=== PATIENT | female | born 1940 | race Caucasian/White ===

== ENCOUNTER 2018-02-16 21:19 | Inpatient (IN) | payer OTHER, MEDICARE ==
[2018-02-16] MEDS: METHYLPREDNISOLONE 125 MG INJ IV (22:32)
[2018-02-16 22:37] LABS: ADD MAN DIFF? NO
[2018-02-16 22:39] LABS: WHITE BLOOD COUNT 7.9 10^3/ul (4.8-10.8)
[2018-02-16 22:39] LABS: BASOPHIL # 0.1 10^3/ul (0.0-0.1); BASOPHILS % 0.6 % (0.0-2.0); EOSINOPHILS # 0.1 10^3/ul (0.0-0.5); EOSINOPHILS % 1.5 % (0.0-7.0); HEMOGLOBIN 13.1 g/dl (12.0-16.0); LYMPHOCYTES # 1.3 10^3/ul (0.8-2.9); LYMPHOCYTES % 16.8 % (15.0-51.0); MEAN CORPUSCULAR HEMOGLOBIN 26.1 pg (29.0-33.0); MEAN CORPUSCULAR HGB CONC 31.2 g/dl (32.0-37.0); MEAN CORPUSCULAR VOLUME 83.7 fl (82.0-101.0); MEAN PLATELET VOLUME 10.6 fl (7.4-10.4); MONOCYTE # 0.7 10^3/ul (0.3-0.9); MONOCYTES % 8.5 % (0.0-11.0); NEUTROPHIL # 5.7 10^3/ul (1.6-7.5); NEUTROPHILS % 72.3 % (39.0-77.0); PLATELET COUNT 277 10^3/UL (140-415); RED BLOOD COUNT 5.02 10^6/ul (4.20-5.40); RED CELL DISTRIBUTION WIDTH 16.8 % (11.5-14.5)
[2018-02-16 22:58] LABS: ALANINE AMINOTRANSFERASE 21 IU/L (13-69); ALBUMIN 4.1 g/dl (3.3-4.9); ALBUMIN/GLOBULIN RATIO 1.13; ALKALINE PHOSPHATASE 101 IU/L (42-121); ANION GAP 16 (8-16); ASPARTATE AMINO TRANSFERASE 23 IU/L (15-46); BLOOD UREA NITROGEN 14 mg/dl (7-20); CALCIUM 9.5 mg/dl (8.4-10.2); CARBON DIOXIDE 21 mmol/L (21-31); CHLORIDE 114 mmol/L (97-110); CREATINE KINASE 34 IU/L (23-200); CREATININE 0.61 mg/dl (0.44-1.00); GLUCOSE 111 mg/dl (70-220); SODIUM 147 mmol/L (135-144); TOTAL PROTEIN 7.7 g/dl (6.1-8.1)
[2018-02-16] MEDS: IPRATROPIUM (NEB) 0.5 MG/2.5 ML AMP INH (22:59)
[2018-02-16] MEDS: ALBUTEROL 0.083% (NEB) 2.5 MG/3 ML AMP INH (22:59)
[2018-02-16 23:11] LABS: B-TYPE NATRIURETIC PEPTIDE 3790 PG/ML (0-450); CK INDEX 2.3; CK-MB 0.79 ng/ml (0.0-2.4)
[2018-02-16 23:12] LABS: D-DIMER 1073.79 ng/ml (<460)
[2018-02-16] MEDS: ASPIRIN 325 MG TAB PO (23:42)
[2018-02-16 23:54] LABS: LACTIC ACID 1.2 mmol/L (0.5-2.0)
[2018-02-17] MEDS: IOHEXOL 100 ML (00:30)
[2018-02-17] MEDS: SOD CHLORIDE 0.9% 100 ML (00:30)
[2018-02-17] MEDS: ALBUTEROL 0.5% (NEB) 2.5 MG/0.5 ML AMP INH (00:33)
[2018-02-17] MEDS: IPRATROPIUM (NEB) 0.5 MG/2.5 ML AMP INH (00:34)
[2018-02-17] MEDS ORDERED: ONDANSETRON 4 MG INJ IV (01:30)
[2018-02-17] MEDS ORDERED: NACL 0.9% 3 ML SYG IV (01:30)
[2018-02-17] MEDS ORDERED: morphine 2 MG INJ IV (01:30)
[2018-02-17] MEDS ORDERED: ACETAMINOPHEN 325 MG TAB PO (01:30)
[2018-02-17] MEDS ORDERED: NITROGLYCERIN (SL) 0.4 MG TAB SL (01:30)
[2018-02-17] MEDS: PIPER-TAZO 3.375 GM IV (PMX) 100 ML IVPB ×5 (01:42→22:03)
[2018-02-17] MEDS: FUROSEMIDE 20 MG INJ IV (01:43)
[2018-02-17 01:58] LABS: LACTIC ACID 1.9 mmol/L (0.5-2.0)
[2018-02-17 02:13] LABS: CREATINE KINASE 36 IU/L (23-200)
[2018-02-17 02:14] LABS: TROPONIN-I 0.129 ng/ml (0.000-0.120)
[2018-02-17 02:15] LABS: CK-MB 0.72 ng/ml (0.0-2.4)
[2018-02-17] MEDS: VANCOMYCIN 1 GM (PMX) 250 ML IVPB (02:34)
[2018-02-17 03:45] LABS: ADD MAN DIFF? NO
[2018-02-17 04:03] LABS: HEMOGLOBIN A1C 5.7 % (0-5.9)
[2018-02-17 04:06] LABS: ALANINE AMINOTRANSFERASE 34 IU/L (13-69); ALBUMIN 3.7 g/dl (3.3-4.9); ALBUMIN/GLOBULIN RATIO 1.19; ALKALINE PHOSPHATASE 95 IU/L (42-121); ANION GAP 19 (8-16); ASPARTATE AMINO TRANSFERASE 32 IU/L (15-46); BILIRUBIN,INDIRECT 0.9 mg/dl (0-1.1); BILIRUBIN,TOTAL 0.9 mg/dl (0.2-1.3); BLOOD UREA NITROGEN 14 mg/dl (7-20); CALCIUM 8.9 mg/dl (8.4-10.2); CARBON DIOXIDE 18 mmol/L (21-31); CHLORIDE 114 mmol/L (97-110); CREATININE 0.64 mg/dl (0.44-1.00); GLUCOSE 221 mg/dl (70-220); MAGNESIUM 1.8 mg/dl (1.7-2.5); POTASSIUM 3.3 mmol/L (3.5-5.1); SODIUM 148 mmol/L (135-144); TOTAL PROTEIN 6.8 g/dl (6.1-8.1)
[2018-02-17 04:11] LABS: AMPHETAMINE/METHAMPHETAMINE Negative (NEGATIVE); BARBITURATES Negative (NEGATIVE); BENZODIAZEPINES Negative (NEGATIVE); CANNABINOIDS Negative (NEGATIVE); COCAINE Negative (NEGATIVE); OPIATES Negative (NEGATIVE)
[2018-02-17 04:12] LABS: WHITE BLOOD COUNT 12.3 10^3/ul (4.8-10.8)
[2018-02-17 04:12] LABS: ABNORMAL IP MESSAGE 1; BASOPHILS % 0.2 % (0.0-2.0); EOSINOPHILS % 0.1 % (0.0-7.0); HEMATOCRIT 38.5 % (37.0-47.0); HEMOGLOBIN 12.2 g/dl (12.0-16.0); LYMPHOCYTES # 0.5 10^3/ul (0.8-2.9); MEAN CORPUSCULAR HEMOGLOBIN 26.6 pg (29.0-33.0); MEAN CORPUSCULAR HGB CONC 31.7 g/dl (32.0-37.0); MEAN CORPUSCULAR VOLUME 84.1 fl (82.0-101.0); MONOCYTE # 0.1 10^3/ul (0.3-0.9); MONOCYTES % 0.8 % (0.0-11.0); NEUTROPHIL # 11.6 10^3/ul (1.6-7.5); NEUTROPHILS % 94.5 % (39.0-77.0); PLATELET COUNT 241 10^3/UL (140-415); RED BLOOD COUNT 4.58 10^6/ul (4.20-5.40)
[2018-02-17 04:22] LABS: ADD UMIC YES; UR AMORPHOUS CRYSTAL MODERATE /HPF (NONE SEEN); UR ASCORBIC ACID 40 mg/dL (NEGATIVE); UR BACTERIA FEW /HPF (NONE SEEN); UR BILIRUBIN (Dip) NEGATIVE (NEGATIVE); UR BLOOD (Dip) NEGATIVE (NEGATIVE); UR CLARITY SLIGHTLY CLOUDY (CLEAR); UR COLOR YELLOW (YELLOW); UR GLUCOSE (Dip) NEGATIVE (NEGATIVE); UR KETONES (Dip) TRACE mg/dL (NEGATIVE); UR LEUKOCYTE ESTERASE (Dip) TRACE Leu/ul (NEGATIVE); UR NITRITE (Dip) POSITIVE (NEGATIVE); UR RBC 0 /HPF (0-5); UR SPECIFIC GRAVITY (Dip) 1.034 (1.003-1.030); UR SQUAMOUS EPITHELIAL CELL FEW /HPF (FEW); UR TOTAL PROTEIN (Dip) NEGATIVE (NEGATIVE); UR UROBILINOGEN (Dip) NEGATIVE (NEGATIVE); UR WBC 8 /HPF (0-5)
[2018-02-17 04:23] LABS: POSITIVE DIFF @See below
[2018-02-17] MEDS: DEXTROSE 5%-0.45% NACL 500 ML BAG IV (04:30)
[2018-02-17 04:32] LABS: LACTIC ACID 4.4 mmol/L (0.5-2.0)
[2018-02-17] MEDS: ENOXAPARIN 80 MG/0.8 ML SYG SC (05:01)
[2018-02-17] MEDS: ALBUMIN HUMAN 25% 100 ML IV ×4 (05:02→10:21)
[2018-02-17] MEDS: POTASSIUM CHLORIDE (SR) 20 MEQ TAB PO (05:32)
[2018-02-17] MEDS ORDERED: VANCOMYCIN IV PER PHARMACY XX (06:30)
[2018-02-17] MEDS: PANTOPRAZOLE 40 MG INJ IV (07:37)
[2018-02-17 08:30] LABS: ANION GAP 20 (8-16); BLOOD UREA NITROGEN 13 mg/dl (7-20); CALCIUM 8.9 mg/dl (8.4-10.2); CARBON DIOXIDE 19 mmol/L (21-31); CHLORIDE 112 mmol/L (97-110); CREATININE 0.63 mg/dl (0.44-1.00); GLUCOSE 280 mg/dl (70-220); SODIUM 147 mmol/L (135-144)
[2018-02-17 09:45] LABS: CREATINE KINASE 29 IU/L (23-200)
[2018-02-17] MEDS: ASPIRIN 81 MG TAB PO (09:45)
[2018-02-17 09:57] LABS: CK INDEX 2.2; CK-MB 0.65 ng/ml (0.0-2.4); TROPONIN-I 0.087 ng/ml (0.000-0.120)
[2018-02-17 10:27] LABS: LACTIC ACID 5.6 mmol/L (0.5-2.0)
[2018-02-17 10:52] LABS: ANION GAP 22 (8-16); BLOOD UREA NITROGEN 13 mg/dl (7-20); CALCIUM 9.2 mg/dl (8.4-10.2); CARBON DIOXIDE 18 mmol/L (21-31); CHLORIDE 112 mmol/L (97-110); CREATININE 0.66 mg/dl (0.44-1.00); GLUCOSE 279 mg/dl (70-220); POTASSIUM 4.7 mmol/L (3.5-5.1); SODIUM 147 mmol/L (135-144)
[2018-02-17] MEDS ORDERED: DOCUSATE SODIUM 100 MG CAP PO (11:00)
[2018-02-17] MEDS: DOCUSATE SODIUM 100 MG CAP PO (11:03)
[2018-02-17] MEDS: BISACODYL (EC) 5 MG TAB PO (11:03)
[2018-02-17 15:38] LABS: LACTIC ACID 2.3 mmol/L (0.5-2.0)
[2018-02-17 15:39] LABS: PLATELET COUNT 210 10^3/UL (140-415)
[2018-02-17 15:48] LABS: INR 1.23; PROTIME 15.7 Sec (11.9-14.9); PT RATIO 1.2
[2018-02-17 15:49] LABS: PARTIAL THROMBOPLASTIN TIME 37.8 Sec (25.0-35.0); THROMBIN TIME 17.5 SEC (13.8-19.1)
[2018-02-17 16:11] LABS: ANION GAP 21 (8-16); BLOOD UREA NITROGEN 14 mg/dl (7-20); CALCIUM 9.6 mg/dl (8.4-10.2); CARBON DIOXIDE 21 mmol/L (21-31); CHLORIDE 109 mmol/L (97-110); GLUCOSE 112 mg/dl (70-220); POTASSIUM 4.5 mmol/L (3.5-5.1); SODIUM 146 mmol/L (135-144)
[2018-02-17] MEDS: LIDOCAINE 1% (MDV) 10 ML INJ (18:54)
[2018-02-17] MEDS: FUROSEMIDE 40 MG INJ IV (18:54)
[2018-02-17 19:24] LABS: FLUID LD 270 U/L; FLUID TYPE PLEURAL FLUID
[2018-02-17 19:25] LABS: FLUID GLUCOSE 143 mg/dl; FLUID TOTAL PROTEIN < 2.0 g/dl; FLUID TYPE PLEURAL FLUID
[2018-02-17 19:25] LABS: LACTIC ACID 1.8 mmol/L (0.5-2.0)
[2018-02-17 19:27] LABS: ANION GAP 19 (8-16); BLOOD UREA NITROGEN 13 mg/dl (7-20); CALCIUM 9.5 mg/dl (8.4-10.2); CARBON DIOXIDE 22 mmol/L (21-31); CHLORIDE 110 mmol/L (97-110); CREATININE 0.64 mg/dl (0.44-1.00); GLUCOSE 107 mg/dl (70-220); POTASSIUM 4.3 mmol/L (3.5-5.1); SODIUM 147 mmol/L (135-144)
[2018-02-17 19:52] LABS: FLD MN% 93.6 %; FLD PMN% 6.4 %; FLD RBC 1000 /uL; FLD WBC 251 /cmm
[2018-02-17 20:31] LABS: FLD CLARITY TURBID; FLD COLOR ORANGE
[2018-02-17 20:33] LABS: FLD TYPE THORACENTHESIS
[2018-02-18] MEDS ORDERED: VANCOMYCIN 1.25 GM in SOD CHLORIDE 0.9% 250 ML IVPB (03:00)
[2018-02-18] MEDS ORDERED: VANCOMYCIN 1 GM 250 ML IVPB (04:00)
[2018-02-18 05:34] LABS: ADD MAN DIFF? NO
[2018-02-18] MEDS: FUROSEMIDE 40 MG INJ IV ×2 (05:36→19:00)
[2018-02-18] MEDS: PIPER-TAZO 3.375 GM IV (PMX) 100 ML IVPB (05:36)
[2018-02-18] MEDS: ENOXAPARIN 40 MG/0.4 ML SYG SC (05:39)
[2018-02-18 05:44] LABS: WHITE BLOOD COUNT 11.5 10^3/ul (4.8-10.8)
[2018-02-18 05:44] LABS: BASOPHILS % 0.3 % (0.0-2.0); EOSINOPHILS # 0.1 10^3/ul (0.0-0.5); EOSINOPHILS % 0.5 % (0.0-7.0); HEMATOCRIT 36.6 % (37.0-47.0); HEMOGLOBIN 11.4 g/dl (12.0-16.0); LYMPHOCYTES # 1.5 10^3/ul (0.8-2.9); LYMPHOCYTES % 13.4 % (15.0-51.0); MEAN CORPUSCULAR HEMOGLOBIN 26.1 pg (29.0-33.0); MEAN CORPUSCULAR HGB CONC 31.1 g/dl (32.0-37.0); MEAN CORPUSCULAR VOLUME 83.9 fl (82.0-101.0); MEAN PLATELET VOLUME 11.1 fl (7.4-10.4); MONOCYTE # 0.9 10^3/ul (0.3-0.9); MONOCYTES % 7.8 % (0.0-11.0); NEUTROPHIL # 8.9 10^3/ul (1.6-7.5); NEUTROPHILS % 77.7 % (39.0-77.0); PLATELET COUNT 236 10^3/UL (140-415); RED BLOOD COUNT 4.36 10^6/ul (4.20-5.40); RED CELL DISTRIBUTION WIDTH 17.1 % (11.5-14.5)
[2018-02-18 06:43] LABS: ANION GAP 16 (8-16); BLOOD UREA NITROGEN 16 mg/dl (7-20); CALCIUM 9.5 mg/dl (8.4-10.2); CARBON DIOXIDE 23 mmol/L (21-31); CHLORIDE 112 mmol/L (97-110); CREATININE 0.78 mg/dl (0.44-1.00); GLUCOSE 106 mg/dl (70-220); MAGNESIUM 1.9 mg/dl (1.7-2.5); PHOSPHORUS 3.8 mg/dl (2.5-4.9); POTASSIUM 4.1 mmol/L (3.5-5.1); SODIUM 147 mmol/L (135-144)
[2018-02-18] MEDS ORDERED: MIDAZOLAM (DRIP) 50 mg/50 mL 50 ML IV (09:30)
[2018-02-18] MEDS: ASPIRIN 81 MG TAB PO (13:03)
[2018-02-18] MEDS: LEVOFLOXACIN 750 MG TABLET PO (14:07)
[2018-02-18] MEDS ORDERED: BISACODYL 10 MG SUPP PR (16:00)
[2018-02-19 04:49] LABS: ADD MAN DIFF? NO
[2018-02-19 04:54] LABS: WHITE BLOOD COUNT 8.8 10^3/ul (4.8-10.8)
[2018-02-19 04:54] LABS: BASOPHIL # 0.1 10^3/ul (0.0-0.1); BASOPHILS % 0.6 % (0.0-2.0); EOSINOPHILS # 0.2 10^3/ul (0.0-0.5); EOSINOPHILS % 2.7 % (0.0-7.0); HEMATOCRIT 36.3 % (37.0-47.0); HEMOGLOBIN 11.5 g/dl (12.0-16.0); LYMPHOCYTES # 1.4 10^3/ul (0.8-2.9); LYMPHOCYTES % 16.1 % (15.0-51.0); MEAN CORPUSCULAR HEMOGLOBIN 26.5 pg (29.0-33.0); MEAN CORPUSCULAR HGB CONC 31.7 g/dl (32.0-37.0); MEAN CORPUSCULAR VOLUME 83.6 fl (82.0-101.0); MEAN PLATELET VOLUME 10.9 fl (7.4-10.4); MONOCYTE # 0.7 10^3/ul (0.3-0.9); MONOCYTES % 8.4 % (0.0-11.0); NEUTROPHIL # 6.3 10^3/ul (1.6-7.5); PLATELET COUNT 221 10^3/UL (140-415); RED BLOOD COUNT 4.34 10^6/ul (4.20-5.40); RED CELL DISTRIBUTION WIDTH 16.8 % (11.5-14.5)
[2018-02-19 05:29] LABS: ANION GAP 13 (8-16); BLOOD UREA NITROGEN 17 mg/dl (7-20); CALCIUM 9.2 mg/dl (8.4-10.2); CARBON DIOXIDE 27 mmol/L (21-31); CHLORIDE 107 mmol/L (97-110); CREATININE 0.64 mg/dl (0.44-1.00); GLUCOSE 95 mg/dl (70-220); MAGNESIUM 1.9 mg/dl (1.7-2.5); PHOSPHORUS 3.4 mg/dl (2.5-4.9); POTASSIUM 3.4 mmol/L (3.5-5.1); SODIUM 144 mmol/L (135-144)
[2018-02-19] MEDS: FUROSEMIDE 40 MG INJ IV ×2 (06:07→18:29)
[2018-02-19] MEDS: ENOXAPARIN 40 MG/0.4 ML SYG SC (06:08)
[2018-02-19] MEDS: ASPIRIN 81 MG TAB PO (10:10)
[2018-02-19 10:53] LABS: LACTATE DEHYDROGENASE 550 IU/L (313-618)
[2018-02-19] MEDS: POTASSIUM CHLORIDE (SR) 20 MEQ TAB PO (13:13)
[2018-02-20] MEDS: FUROSEMIDE 40 MG INJ IV (05:40)
[2018-02-20] MEDS: ENOXAPARIN 40 MG/0.4 ML SYG SC (05:48)
[2018-02-20] MEDS: ASPIRIN 81 MG TAB PO (08:18)
[2018-02-20 08:19] LABS: ADD MAN DIFF? NO
[2018-02-20 08:25] LABS: BASOPHILS % 0.4 % (0.0-2.0); EOSINOPHILS # 0.2 10^3/ul (0.0-0.5); EOSINOPHILS % 2.6 % (0.0-7.0); HEMATOCRIT 40.3 % (37.0-47.0); LYMPHOCYTES # 1.2 10^3/ul (0.8-2.9); LYMPHOCYTES % 14.6 % (15.0-51.0); MEAN CORPUSCULAR HEMOGLOBIN 26.5 pg (29.0-33.0); MEAN CORPUSCULAR HGB CONC 32.3 g/dl (32.0-37.0); MEAN CORPUSCULAR VOLUME 82.1 fl (82.0-101.0); MEAN PLATELET VOLUME 11.2 fl (7.4-10.4); MONOCYTE # 0.6 10^3/ul (0.3-0.9); NEUTROPHILS % 74.2 % (39.0-77.0); PLATELET COUNT 251 10^3/UL (140-415); RED BLOOD COUNT 4.91 10^6/ul (4.20-5.40); RED CELL DISTRIBUTION WIDTH 16.4 % (11.5-14.5)
[2018-02-20 08:42] LABS: PHOSPHORUS 4.5 mg/dl (2.5-4.9)
[2018-02-20 08:42] LABS: MAGNESIUM 1.9 mg/dl (1.7-2.5)
[2018-02-20 08:45] LABS: ALANINE AMINOTRANSFERASE 41 IU/L (13-69); ALBUMIN 4.3 g/dl (3.3-4.9); ALBUMIN/GLOBULIN RATIO 1.48; ALKALINE PHOSPHATASE 90 IU/L (42-121); ANION GAP 19 (8-16); ASPARTATE AMINO TRANSFERASE 29 IU/L (15-46); BILIRUBIN,INDIRECT 0.9 mg/dl (0-1.1); BILIRUBIN,TOTAL 0.9 mg/dl (0.2-1.3); BLOOD UREA NITROGEN 16 mg/dl (7-20); CALCIUM 9.5 mg/dl (8.4-10.2); CARBON DIOXIDE 28 mmol/L (21-31); CHLORIDE 100 mmol/L (97-110); CREATININE 0.61 mg/dl (0.44-1.00); GLUCOSE 109 mg/dl (70-220); POTASSIUM 3.5 mmol/L (3.5-5.1); SODIUM 143 mmol/L (135-144); TOTAL PROTEIN 7.2 g/dl (6.1-8.1)
[2018-02-20 08:48] LABS: B-TYPE NATRIURETIC PEPTIDE 3460 PG/ML (0-450)
[2018-02-20] MEDS: LEVOFLOXACIN 750 MG TABLET PO (14:17)
[2018-02-20] MEDS: MAGNESIUM SULFATE 2 GM/50 ML 50 ML IVPB (17:16)
[2018-02-20] MEDS: POTASSIUM CHLORIDE (SR) 20 MEQ TAB PO (17:16)
[2018-02-20] MEDS: FUROSEMIDE 20 MG INJ IV (17:25)
[2018-02-21] MEDS: FUROSEMIDE 20 MG INJ IV ×2 (06:30→17:20)
[2018-02-21] MEDS: ASPIRIN 81 MG TAB PO (08:35)
[2018-02-21] MEDS: ENOXAPARIN 40 MG/0.4 ML SYG SC (08:36)
[2018-02-21 09:37] LABS: ADD MAN DIFF? NO
[2018-02-21 09:40] LABS: WHITE BLOOD COUNT 8.5 10^3/ul (4.8-10.8)
[2018-02-21 09:40] LABS: BASOPHILS % 0.4 % (0.0-2.0); EOSINOPHILS # 0.1 10^3/ul (0.0-0.5); EOSINOPHILS % 1.6 % (0.0-7.0); HEMATOCRIT 40.8 % (37.0-47.0); HEMOGLOBIN 13.2 g/dl (12.0-16.0); LYMPHOCYTES # 1.1 10^3/ul (0.8-2.9); LYMPHOCYTES % 12.5 % (15.0-51.0); MEAN CORPUSCULAR HEMOGLOBIN 26.7 pg (29.0-33.0); MEAN CORPUSCULAR HGB CONC 32.4 g/dl (32.0-37.0); MEAN CORPUSCULAR VOLUME 82.4 fl (82.0-101.0); MEAN PLATELET VOLUME 11.4 fl (7.4-10.4); MONOCYTE # 0.7 10^3/ul (0.3-0.9); MONOCYTES % 7.7 % (0.0-11.0); NEUTROPHIL # 6.6 10^3/ul (1.6-7.5); NEUTROPHILS % 77.4 % (39.0-77.0); PLATELET COUNT 247 10^3/UL (140-415); RED BLOOD COUNT 4.95 10^6/ul (4.20-5.40); RED CELL DISTRIBUTION WIDTH 16.2 % (11.5-14.5)
[2018-02-21] MEDS: SPIRONOLACTONE 25 MG TAB PO (13:19)
[2018-02-21] MEDS: POTASSIUM CHLORIDE (SR) 20 MEQ TAB PO (13:19)
[2018-02-21] MEDS: BISACODYL (EC) 5 MG TAB PO (17:20)
[2018-02-21] MEDS: DOCUSATE SODIUM 100 MG CAP PO (17:20)
[2018-02-22] MEDS: FUROSEMIDE 20 MG INJ IV ×2 (06:25→18:13)
[2018-02-22 07:05] LABS: ADD MAN DIFF? NO
[2018-02-22 07:13] LABS: BASOPHIL # 0.1 10^3/ul (0.0-0.1); BASOPHILS % 0.6 % (0.0-2.0); EOSINOPHILS # 0.2 10^3/ul (0.0-0.5); EOSINOPHILS % 2.6 % (0.0-7.0); HEMOGLOBIN 12.8 g/dl (12.0-16.0); LYMPHOCYTES # 1.3 10^3/ul (0.8-2.9); LYMPHOCYTES % 13.9 % (15.0-51.0); MEAN CORPUSCULAR HEMOGLOBIN 26.4 pg (29.0-33.0); MEAN CORPUSCULAR VOLUME 82.5 fl (82.0-101.0); MEAN PLATELET VOLUME 11.1 fl (7.4-10.4); MONOCYTE # 1.2 10^3/ul (0.3-0.9); NEUTROPHIL # 6.5 10^3/ul (1.6-7.5); NEUTROPHILS % 69.5 % (39.0-77.0); PLATELET COUNT 258 10^3/UL (140-415); RED BLOOD COUNT 4.85 10^6/ul (4.20-5.40); RED CELL DISTRIBUTION WIDTH 15.9 % (11.5-14.5)
[2018-02-22 07:13] LABS: WHITE BLOOD COUNT 9.3 10^3/ul (4.8-10.8)
[2018-02-22 07:44] LABS: PHOSPHORUS 4.3 mg/dl (2.5-4.9)
[2018-02-22 07:44] LABS: MAGNESIUM 2.2 mg/dl (1.7-2.5)
[2018-02-22 07:49] LABS: ALANINE AMINOTRANSFERASE 29 IU/L (13-69); ALKALINE PHOSPHATASE 80 IU/L (42-121); ANION GAP 17 (8-16); ASPARTATE AMINO TRANSFERASE 20 IU/L (15-46); BILIRUBIN,INDIRECT 0.7 mg/dl (0-1.1); BILIRUBIN,TOTAL 0.7 mg/dl (0.2-1.3); BLOOD UREA NITROGEN 19 mg/dl (7-20); CALCIUM 9.6 mg/dl (8.4-10.2); CARBON DIOXIDE 27 mmol/L (21-31); CHLORIDE 102 mmol/L (97-110); CREATININE 0.56 mg/dl (0.44-1.00); GLUCOSE 112 mg/dl (70-220); POTASSIUM 4.4 mmol/L (3.5-5.1); SODIUM 142 mmol/L (135-144); TOTAL PROTEIN 6.5 g/dl (6.1-8.1)
[2018-02-22] MEDS: ASPIRIN 81 MG TAB PO (09:58)
[2018-02-22] MEDS: POTASSIUM CHLORIDE (SR) 20 MEQ TAB PO (09:58)
[2018-02-22] MEDS: SPIRONOLACTONE 25 MG TAB PO (09:59)
[2018-02-22] MEDS: ENOXAPARIN 40 MG/0.4 ML SYG SC (10:02)
[2018-02-22] MEDS: morphine LIQ (10 MG/5 ML) CUP PO (10:06)
[2018-02-22] MEDS: LEVOFLOXACIN 750 MG TABLET PO (14:45)
[2018-02-23] MEDS: FUROSEMIDE 20 MG INJ IV ×2 (05:14→18:13)
[2018-02-23 07:10] LABS: ADD MAN DIFF? NO
[2018-02-23 07:16] LABS: WHITE BLOOD COUNT 9.9 10^3/ul (4.8-10.8)
[2018-02-23 07:16] LABS: BASOPHILS % 0.4 % (0.0-2.0); EOSINOPHILS # 0.2 10^3/ul (0.0-0.5); EOSINOPHILS % 2.4 % (0.0-7.0); HEMATOCRIT 39.5 % (37.0-47.0); HEMOGLOBIN 12.5 g/dl (12.0-16.0); LYMPHOCYTES # 1.2 10^3/ul (0.8-2.9); LYMPHOCYTES % 12.2 % (15.0-51.0); MEAN CORPUSCULAR HEMOGLOBIN 26.2 pg (29.0-33.0); MEAN CORPUSCULAR HGB CONC 31.6 g/dl (32.0-37.0); MEAN CORPUSCULAR VOLUME 82.6 fl (82.0-101.0); MEAN PLATELET VOLUME 11.2 fl (7.4-10.4); MONOCYTE # 1.2 10^3/ul (0.3-0.9); MONOCYTES % 12.6 % (0.0-11.0); NEUTROPHIL # 7.1 10^3/ul (1.6-7.5); PLATELET COUNT 258 10^3/UL (140-415); RED BLOOD COUNT 4.78 10^6/ul (4.20-5.40); RED CELL DISTRIBUTION WIDTH 15.7 % (11.5-14.5)
[2018-02-23 07:47] LABS: B-TYPE NATRIURETIC PEPTIDE 3070 PG/ML (0-450)
[2018-02-23 07:54] LABS: ALANINE AMINOTRANSFERASE 31 IU/L (13-69); ALBUMIN 4.3 g/dl (3.3-4.9); ALBUMIN/GLOBULIN RATIO 1.38; ALKALINE PHOSPHATASE 88 IU/L (42-121); ANION GAP 18 (8-16); ASPARTATE AMINO TRANSFERASE 29 IU/L (15-46); BLOOD UREA NITROGEN 18 mg/dl (7-20); CALCIUM 9.4 mg/dl (8.4-10.2); CARBON DIOXIDE 28 mmol/L (21-31); CHLORIDE 100 mmol/L (97-110); CREATININE 0.59 mg/dl (0.44-1.00); GLUCOSE 118 mg/dl (70-220); MAGNESIUM 2.1 mg/dl (1.7-2.5); SODIUM 142 mmol/L (135-144); TOTAL PROTEIN 7.4 g/dl (6.1-8.1)
[2018-02-23] MEDS: SPIRONOLACTONE 25 MG TAB PO (08:44)
[2018-02-23] MEDS: POTASSIUM CHLORIDE (SR) 20 MEQ TAB PO (08:44)
[2018-02-23] MEDS: ASPIRIN 81 MG TAB PO (08:44)
[2018-02-23] MEDS: ENOXAPARIN 40 MG/0.4 ML SYG SC (08:50)
[2018-02-24] MEDS: FUROSEMIDE 20 MG INJ IV ×2 (05:36→17:56)
[2018-02-24 08:08] LABS: ADD MAN DIFF? NO
[2018-02-24 08:16] LABS: BASOPHIL # 0.1 10^3/ul (0.0-0.1); BASOPHILS % 0.7 % (0.0-2.0); EOSINOPHILS # 0.2 10^3/ul (0.0-0.5); EOSINOPHILS % 2.3 % (0.0-7.0); HEMATOCRIT 39.1 % (37.0-47.0); HEMOGLOBIN 12.8 g/dl (12.0-16.0); LYMPHOCYTES # 1.2 10^3/ul (0.8-2.9); MEAN CORPUSCULAR HEMOGLOBIN 27.1 pg (29.0-33.0); MEAN CORPUSCULAR HGB CONC 32.7 g/dl (32.0-37.0); MEAN CORPUSCULAR VOLUME 82.7 fl (82.0-101.0); MEAN PLATELET VOLUME 11.6 fl (7.4-10.4); MONOCYTE # 1.2 10^3/ul (0.3-0.9); MONOCYTES % 13.7 % (0.0-11.0); NEUTROPHIL # 5.9 10^3/ul (1.6-7.5); NEUTROPHILS % 69.1 % (39.0-77.0); PLATELET COUNT 265 10^3/UL (140-415); RED BLOOD COUNT 4.73 10^6/ul (4.20-5.40); RED CELL DISTRIBUTION WIDTH 15.2 % (11.5-14.5)
[2018-02-24 08:16] LABS: WHITE BLOOD COUNT 8.5 10^3/ul (4.8-10.8)
[2018-02-24] MEDS: SPIRONOLACTONE 25 MG TAB PO (08:19)
[2018-02-24] MEDS: ASPIRIN 81 MG TAB PO (08:20)
[2018-02-24] MEDS: POTASSIUM CHLORIDE (SR) 20 MEQ TAB PO (08:20)
[2018-02-24] MEDS: ENOXAPARIN 40 MG/0.4 ML SYG SC (08:44)
[2018-02-24] MEDS: LEVOFLOXACIN 750 MG TABLET PO (13:31)
[2018-02-25] MEDS: FUROSEMIDE 20 MG INJ IV ×2 (06:14→18:15)
[2018-02-25] MEDS: SPIRONOLACTONE 25 MG TAB PO (08:23)
[2018-02-25] MEDS: POTASSIUM CHLORIDE (SR) 20 MEQ TAB PO (08:23)
[2018-02-25] MEDS: ENOXAPARIN 40 MG/0.4 ML SYG SC (08:24)
[2018-02-25] MEDS: ASPIRIN 81 MG TAB PO (08:24)
[2018-02-26] MEDS: FUROSEMIDE 20 MG INJ IV (06:32)
[2018-02-26] MEDS: POTASSIUM CHLORIDE (SR) 20 MEQ TAB PO (09:33)
[2018-02-26] MEDS: ASPIRIN 81 MG TAB PO (09:34)
[2018-02-26] MEDS: SPIRONOLACTONE 25 MG TAB PO (09:34)
[2018-02-26] MEDS: ENOXAPARIN 40 MG/0.4 ML SYG SC (09:37)
[2018-02-26] MEDS: FUROSEMIDE 40 MG TAB PO (21:15)
[2018-02-27] MEDS: morphine LIQ (10 MG/5 ML) CUP PO (00:59)
[2018-02-27] MEDS: FUROSEMIDE 40 MG TAB PO (05:57)
[2018-02-27 07:47] LABS: ADD MAN DIFF? NO
[2018-02-27 07:57] LABS: BASOPHIL # 0.1 10^3/ul (0.0-0.1); BASOPHILS % 0.6 % (0.0-2.0); EOSINOPHILS # 0.1 10^3/ul (0.0-0.5); EOSINOPHILS % 1.6 % (0.0-7.0); HEMATOCRIT 42.3 % (37.0-47.0); HEMOGLOBIN 13.3 g/dl (12.0-16.0); LYMPHOCYTES # 1.6 10^3/ul (0.8-2.9); LYMPHOCYTES % 18.9 % (15.0-51.0); MEAN CORPUSCULAR HGB CONC 31.4 g/dl (32.0-37.0); MEAN CORPUSCULAR VOLUME 82.8 fl (82.0-101.0); MEAN PLATELET VOLUME 10.8 fl (7.4-10.4); MONOCYTE # 0.8 10^3/ul (0.3-0.9); NEUTROPHIL # 5.7 10^3/ul (1.6-7.5); NEUTROPHILS % 68.4 % (39.0-77.0); PLATELET COUNT 308 10^3/UL (140-415); RED BLOOD COUNT 5.11 10^6/ul (4.20-5.40); RED CELL DISTRIBUTION WIDTH 15.3 % (11.5-14.5)
[2018-02-27 07:57] LABS: WHITE BLOOD COUNT 8.3 10^3/ul (4.8-10.8)
[2018-02-27 08:17] LABS: ALANINE AMINOTRANSFERASE 52 IU/L (13-69); ALBUMIN 4.4 g/dl (3.3-4.9); ALBUMIN/GLOBULIN RATIO 1.22; ALKALINE PHOSPHATASE 112 IU/L (42-121); ANION GAP 18 (8-16); ASPARTATE AMINO TRANSFERASE 56 IU/L (15-46); BILIRUBIN,INDIRECT 0.5 mg/dl (0-1.1); BILIRUBIN,TOTAL 0.5 mg/dl (0.2-1.3); BLOOD UREA NITROGEN 22 mg/dl (7-20); CALCIUM 9.8 mg/dl (8.4-10.2); CARBON DIOXIDE 29 mmol/L (21-31); CHLORIDE 100 mmol/L (97-110); CREATININE 0.73 mg/dl (0.44-1.00); GLUCOSE 119 mg/dl (70-220); POTASSIUM 4.2 mmol/L (3.5-5.1); SODIUM 143 mmol/L (135-144)
[2018-02-27 08:24] LABS: MAGNESIUM 2.1 mg/dl (1.7-2.5)
[2018-02-27 08:24] LABS: PHOSPHORUS 4.8 mg/dl (2.5-4.9)
[2018-02-27 08:25] LABS: B-TYPE NATRIURETIC PEPTIDE 1780 PG/ML (0-450)
[2018-02-27] MEDS: POTASSIUM CHLORIDE (SR) 20 MEQ TAB PO (09:12)
[2018-02-27] MEDS: SPIRONOLACTONE 25 MG TAB PO (09:12)
[2018-02-27] MEDS: ASPIRIN 81 MG TAB PO (09:12)
[2018-02-27] MEDS: ENOXAPARIN 40 MG/0.4 ML SYG SC (09:17)
== END 2018-02-27 16:37 | disposition home or self-care (01) | DRG 280 ==
LOC: TEL 02-24 05:05 → MS4 02-25 08:54 → E/R 21:19 → TEL 02-19 20:10 → ICU 02-17 00:59
PROC: 0W993ZX Drainage of Right Pleural Cavity, Percutaneous Approach, Diagnostic (ICD-10-PCS; principal; 2018-02-17)
DX: I50.33 Acute on chronic diastolic (congestive) heart failure (principal); J18.9 Pneumonia, unspecified organism; I21.A1 Myocardial infarction type 2; J96.01 Acute respiratory failure with hypoxia; J96.02 Acute respiratory failure with hypercapnia; E87.2 Acidosis; N39.0 Urinary tract infection, site not specified; E87.0 Hyperosmolality and hypernatremia; J90 Pleural effusion, not elsewhere classified; N17.9 Acute kidney failure, unspecified; Y95 Nosocomial condition; Z59.0 Homelessness; E87.6 Hypokalemia; I25.10 Atherosclerotic heart disease of native coronary artery without angina pectoris
CPT/HCPCS: 32555; 71045; 71275; 80048; 80053; 80307; 81001; 82550; 82553; 82945; 83036; 83605; 83615; 83735; 83880; 84100; 84157; 84443; 84484; 85025; 85049; 85378; 85610; 85670; 85730; 87040; 87070; 87081; 87086; 87102; 87116; 88104; 88305; 89051; 93005; 93306; 93970; 94644; 94660; 94664; 96365; 96366; 96372; 96375; 96376; 97110; 97116; 97162; 97530; 99291-25